=== PATIENT | female | born 1945 | race Hispanic/Latino ===

== ENCOUNTER 2016-09-08 16:19 | Emergency (ER) | payer MEDICARE ==
[2016-09-08 17:10] LABS: #Basophils 0.1 thou/uL (0.0-0.2); #Eosinphils 0.1 thou/uL (0.0-0.7); #Lymphocytes 1.3 thou/uL (1.20-3.40); #Monocytes 0.5 thou/uL (0.11-0.59); #Neutrophils 6.5 thou/uL (1.40-6.50); %Basophils 1.7 % (0.0-1.0); %Eosinophils 1.6 % (0.0-10.0); %Lymphocytes 15.1 % (21.0-51.0); %Monocytes 5.4 % (0.0-10.0); %Neutrophils 76.2 % (42.0-75.0); Hemoglobin 9.7 g/dL (12.0-16.0); Mean Corpuscular HGB CONC 34.5 g/dL (32.0-36.0); Mean Corpuscular Hemoglobin 29.4 pg (27.0-31.0); Mean Corpuscular Volume 85.2 fl (81.0-99.0); Mean Platelet Volume 6.2 fL (7.4-10.4); Platelet Count 364 thou/uL (130-400); RBC Distribution Width 16.8 % (11.5-14.5); Red Blood Cell (RBC) Count 3.29 mill/uL (4.20-5.40); White Blood Cell (WBC) Count 8.5 thou/uL (4.8-10.8)
[2016-09-08 17:29] LABS: ALT (SGPT) 21 U/L (0-55); AST (SGOT) 23 U/L (5-34); Albumin 4.4 g/dL (3.4-4.8); Alkaline Phosphatase 63 U/L (40-150); Anion Gap 19 mmol/L (10-20); BUN (Urea Nitrogen) 12 mg/dL (9.8-20.1); Bilirubin, Total 0.3 mg/dL (0.2-1.2); Calc. Creatinine Clearance 0 mL/min (70-130); Calcium 9.6 mg/dL (7.8-10.44); Carbon Dioxide 20 mmol/L (23-31); Chloride 105 mmol/L (98-107); Estimated GFR-MDRD 81; Globulin 3.1 g/dL (2.4-3.5); Glucose 82 mg/dL (80-115); Potassium 3.6 mmol/L (3.5-5.1); Protein, Total 7.5 g/dL (5.8-8.1); Sodium 140 mmol/L (136-145)
--- NOTE | 2016-09-08 17:50 | ERRECORD ---
[facility] EMERGENCY RECORD HPI DIABETES (16:45 SHAN) CHIEF COMPLAINT: Patient presents for evaluation of hypoglycemia. HISTORIAN: History provided by patient, recent rx of diverticulitis; today glucoses dropped into 40's; came to er. Hadn't felt well this afternoon. TIME COURSE: Gradual onset of symptoms. ROS (16:46 SHAN) CONSTITUTIONAL: Negative constitutional review of systems, Historian denies chills, denies fever. EYES: Negative eye review of systems. ENT: Negative ears, nose, throat review of systems. CARDIOVASCULAR: Negative cardiovascular review of systems, Historian denies chest pain, denies palpitations. RESPIRATORY: Negative respiratory review of systems, Historian denies cough, denies shortness of breath. GI: Negative gastrointestinal review of systems, Historian denies abdominal pain, denies constipation, denies diarrhea. MUSCULOSKELETAL: Negative musculoskeletal review of systems. SKIN: Negative skin review of systems. NEUROLOGIC: Negative neurologic review of systems. ENDOCRINE: Negative endocrine review of systems. HEMO/LYMPHATIC: Normal hematologic/lymphatic system review. PSYCHIATRIC: Negative psychiatric review of systems. NOTES: All other ROS is negative except as listed in HPI. PAST MEDICAL HISTORY MEDICAL HISTORY: Notes: POOR HISTORIAN, Past medical history includes cardiac history, unspecified arrhythmia, Past medical history includes history of diabetes, Type II, Past medical history includes history of hyperlipidemia, high cholesterol. (16:29 SFRE) FEMALE SURGICAL HISTORY: COLON CA POOR HISTORIAN. (16:29 SFRE) PSYCHIATRIC HISTORY: No previous psychiatric history. (16:29 SFRE) SOCIAL HISTORY: Patient denies alcohol use, Patient denies drug use, Patient has no smoking history. (16:29 SFRE) NOTES: I have reviewed and agree with the PMH/PSxH/FamHx/SocHx obtained by the nurse. (16:46 SHAN) KNOWN ALLERGIES Ceclor Penicillins Sulfa (Sulfonamide Antibiotics) Zithromax CURRENT MEDICATIONS &a-1R&a+25V*p+0X*c8096F*c202B*c15G*c2P*p-0X&a-25V&a+1R Name: Kaila Frazier : 1945 F71 MedRec: [id number] AcctNum: [id number] Prepared: Dayana Sep 08, 2016 18:10 by Interface Page 1 of 4 pMD [facility] EMERGENCY RECORD fenofibrate: TABLET : Strength - 160 mg : ORAL Patient Dose: once a day (at bedtime). (16:29 JPER) glipiZIDE: TABLET : Strength - 10 mg : ORAL Patient Dose: mg Oral 2 times a day. (16:31 JPER) Iron (ferrous sulfate): TABLET : Strength - 325 mg (65 mg iron) : ORAL Patient Dose: mg Oral once a day (in the morning). (16:31 JPER) metFORMIN: TABLET : Strength - 1,000 mg : ORAL Patient Dose: 2 times a day. (16:31 JPER) omeprazole: CAPSULE,DELAYED RELEASE (ENTERIC COATED) : Strength - 20 mg : ORAL Patient Dose: once a day (in the morning). (16:31 JPER) clarithromycin: TABLET : Strength - 500 mg : ORAL Patient Dose: 2 times a day (before meals). (16:32 JPER) Flagyl: TABLET : Strength - 500 mg : ORAL Patient Dose: 2 times a day (before meals). (16:32 JPER) VITAL SIGNS VITAL SIGNS: BP: 156/61, Pulse: 89, Resp: 18, Temp: 98.0 (Tympanic), Pain: 0, O2 sat: 100 on Room Air, Time: 09/08/2016 16:22. (16:22 SFRE) BP: 126/52, Pulse: 91, Resp: 18, Temp: 98.1 (Tympanic), Pain: 0, O2 sat: 98 on Room Air, Time: 09/08/2016 17:45. (17:45 SFRE) BP: 133/63, Pulse: 83, Resp: 18, Pain: 0, O2 sat: 99 on Room Air, Time: 09/08/2016 17:15. (17:15 SFRE) BP: 136/58, Pulse: 88, Resp: 18, Temp: 98.0 (Tympanic), Pain: 0, O2 sat: 97 on Room Air, Time: 09/08/2016 16:45. (16:45 SFRE) PHYSICAL EXAM (16:46 SHAN) CONSTITUTIONAL: Vital signs reviewed, Patient appears non toxic, Patient alert and oriented to person, place and time, Pt is in no apparent distress. HEAD: Head exam included findings of head atraumatic, normocephalic. EYES: Eye exam included findings of eyelids normal to inspection, Pupils equally round and reactive to light, Extraocular muscles intact. ENT: ENT exam normal, Nose exam normal, no nasal deformity, no bleeding from nares, Pharynx exam normal, Mouth exam normal, mucous membranes moist. NECK: Neck exam included findings of normal range of motion, Trachea midline. RESPIRATORY CHEST: Respiratory and chest exam normal, Breath sounds clear, No wheezing, No rales, Chest exam included findings of &a-1R&a+25V*p+0X*w0522M*c202B*c15G*c2P*p-0X&a-25V&a+1R Name: Kaila Frazier : 1945 F71 MedRec: [id number] AcctNum: [id number] Prepared: Dayana Sep 08, 2016 18:10 by Interface Page 2 of 4 pMD [facility] EMERGENCY RECORD chest movement symmetrical, Chest expansion equal. CARDIOVASCULAR: Cardiovascular assessment normal, Cardiovascular exam included findings of heart rate regular rate and rhythm, Heart sounds normal. ABDOMEN FEMALE: Abdominal exam included findings of abdomen nontender, Bowel sounds normal, no mass, no pulsatile masses, no peritoneal signs. BACK: Back exam included findings of normal inspection, range of motion normal, no costovertebral angle tenderness. UPPER EXTREMITY: Upper extremity exam included findings of inspection normal, Range of motion normal. LOWER EXTREMITY: Lower extremity exam included findings of inspection normal, Range of motion normal. NEURO: Neuro exam findings include patient oriented to person, place and time, Speech normal, no focal motor deficits, no focal sensory deficits. SKIN: Skin exam included findings of skin warm, dry, and normal in color. LYMPHATIC: Lymphatic exam normal. PSYCHIATRIC: Psychiatric exam included findings of patient oriented to person place and time, Normal affect. DOCTOR NOTES TEXT: Adult female; diabetic; recent diverticulitis and gastritis on biaxin, flagyl, and Prilosec newly; glucose dropped low at home. (16:46 SHAN) Much improved; will allow discharge suspect that the flagyl and biaxin have caused some low grade stomach upset and calory drop. Will discharge. (17:38 SHAN) DATA REVIEWED: Lab data reviewed. (16:46 SHAN) Lab data reviewed. (17:38 SHAN) PROBLEM LIST No recorded problems DIAGNOSIS (17:40 CHU) FINAL: PRIMARY: Hypoglycemia (unspecified), ADDITIONAL: diabetes type 2. PRESCRIPTION (17:41 SHAN) Glucagon Emergency Kit (human): KIT : 1 mg : INJECTION : Quantity: 1 Unit: units Route: INJECTION Schedule: See Notes Dispense: 1 May substitute. Refills: No Refills . NOTES: if sugar drops low and can not eat; use one injection prior to calling ems. No Refills. DISPOSITION PATIENT: Disposition Type: Discharge, Disposition: *Discharge &a-1R&a+25V*p+0X*x9866T*c202B*c15G*c2P*p-0X&a-25V&a+1R Name: Kaila Frazier : 1945 F71 MedRec: [id number] AcctNum: [id number] Prepared: Dayana Sep 08, 2016 18:10 by Interface Page 3 of 4 pMD [facility] EMERGENCY RECORD Home. (17:40 CHU) Patient left the department. (18:02 JOMAR) Rodriguez: ALEX=PALLAVI Phillips, Chata HADLEY=PALLAVI Kimble, Kenna SAGE=MD Hawk, Praful &a-1R&a+25V*p+0X*j0729M*c202B*c15G*c2P*p-0X&a-25V&a+1R Name: Kaila Frazier : 1945 F71 MedRec: [id number] AcctNum: [id number] Prepared: Dayana Sep 08, 2016 18:10 by Interface Page 4 of 4 pMD MTDD
--- NOTE | 2016-09-08 17:53 | PICIS ---
[facility] EMERGENCY RECORD TRIAGE (16:24 SFRE) TRIAGE NOTES: LOW BLOOD SUGAR. (16:24 SFRE) PATIENT: NAME: Kaila Frazier, AGE: 71, GENDER: female, : Sat 1945, TIME OF GREET: WedSep 08, 2016 16:20, PREFERRED LANGUAGE: Pashto, ETHNICITY: Not or , ECODE BILLING MAP: [facility], SSN: [id number], Zip Code: [address], KG WEIGHT: 68.04, PHONE: , , , PERSON ID: [id number], PCP: ARIELLE. (16:24 SFRE) COMPLAINT: LOW BLOOD SUGAR. (16:24 SFRE) ADMISSION: URGENCY: 3 Urgent, ADMISSION SOURCE: Home, TRANSPORT: AMBULANCE - [facility], BED: ED -02. (16:24 SFRE) PAIN: No complaint of pain. (16:29 SFRE) IMMUNIZATIONS: Flu vaccine not up to date, Pneumococcal vaccine not up to date. (16:29 SFRE) SIRS SCORING: Heart Rate 55-109 (0), Temp range 96.8-101.1 (0), respiratory rate 12-24 (0), Mental Status altered: no (0). (16:29 SFRE) TRIAGE SCREENING: Patient denies suicidal ideation, Patient denies presence of domestic violence. (16:29 SFRE) PROVIDERS: TRIAGE NURSE: Kenna Kimble RN. (16:24 SFRE) VITAL SIGNS: BP 156/61, Pulse 89, Resp 18, Temp 98.0, (Tympanic), Pain 0, O2 Sat 100, on Room Air, Time 09/08/2016 16:22. (16:22 SFRE) KNOWN ALLERGIES Ceclor Penicillins Sulfa (Sulfonamide Antibiotics) Zithromax CURRENT MEDICATIONS fenofibrate: TABLET : Strength - 160 mg : ORAL Patient Dose: once a day (at bedtime). (16:29 JPER) glipiZIDE: TABLET : Strength - 10 mg : ORAL Patient Dose: mg Oral 2 times a day. (16:31 JPER) Iron (ferrous sulfate): TABLET : Strength - 325 mg (65 mg iron) : ORAL Patient Dose: mg Oral once a day (in the morning). (16:31 JPER) metFORMIN: TABLET : Strength - 1,000 mg : ORAL Patient Dose: 2 times a day. (16:31 JPER) omeprazole: CAPSULE,DELAYED RELEASE (ENTERIC COATED) : Strength - 20 mg : ORAL Patient Dose: once a day (in the morning). (16:31 JPER) clarithromycin: TABLET : Strength - 500 mg : ORAL Patient Dose: 2 times a day (before meals). (16:32 JPER) &a-1R&a+25V*p+0X*w2323I*c202B*c15G*c2P*p-0X&a-25V&a+1R Name: Kaila Frazier : 1945 F71 MedRec: [id number] AcctNum: [id number] Prepared: WedSep 08, 2016 18:15 by Interface Page 1 of 7 pMD [facility] EMERGENCY RECORD Flagyl: TABLET : Strength - 500 mg : ORAL Patient Dose: 2 times a day (before meals). (16:32 JPER) VITAL SIGNS VITAL SIGNS: BP: 156/61, Pulse: 89, Resp: 18, Temp: 98.0 (Tympanic), Pain: 0, O2 sat: 100 on Room Air, Time: 09/08/2016 16:22. (16:22 SFRE) BP: 126/52, Pulse: 91, Resp: 18, Temp: 98.1 (Tympanic), Pain: 0, O2 sat: 98 on Room Air, Time: 09/08/2016 17:45. (17:45 SFRE) BP: 133/63, Pulse: 83, Resp: 18, Pain: 0, O2 sat: 99 on Room Air, Time: 09/08/2016 17:15. (17:15 SFRE) BP: 136/58, Pulse: 88, Resp: 18, Temp: 98.0 (Tympanic), Pain: 0, O2 sat: 97 on Room Air, Time: 09/08/2016 16:45. (16:45 SFRE) NURSING ASSESSMENT: FOCUSED (16:35 SFRE) CONSTITUTIONAL: Patient arrives, via stretcher, via [facility], Gait steady, History obtained from patient, Patient appears, anxious, Patient cooperative, Patient alert, Oriented to person, place and time, Skin warm, Skin dry, Skin normal in color, Mucous membranes pink, Mucous membranes moist, Patient is well-groomed, Patient complains of LOW BLOOD SUGAR, PATIENT REPORTS THAT SHE STARTED SHAKING AND SO SHE CHECKED HER BS AND IT WAS 43. SHE DRANK A SODA. PAIN: intermittent, Patient rates pain as 0 out of 10. EYES: Focused eye assessment finding include pupils equally round and reactive to light. NEURO: Focused neuro assessment findings include patient alert, cooperative, No facial droop noted, Speech coherent, no weakness, no numbness, No loss of consciousness. GCS: Eye opening: (4) - Spontaneous, Verbal: (5) - Oriented/conversive, Motor: (6) - Obeys commands/Spontaneous, GCS Total: 15. RESPIRATORY: Focused respiratory assessment findings include breath sounds clear. ABDOMEN: Focused abdominal assessment findings include abdomen soft, non tender, no constipation, no diarrhea, no complaint of nausea, no vomiting, Bowel sounds present. GENITOURINARY FEMALE: Focused genitourinary assessment not applicable. MUSCULOSKELETAL: Focused musculoskeletal assessment findings include normal range of motion. SAFETY: Side rails up, Cart/Stretcher in lowest position, Family at bedside, Call light within reach, Hospital ID band on. NURSING PROCEDURE: BEDSIDE TESTING GLUCOSE: Glucose testing indicated for diabetic patient, Capillary blood sample, Result (mg/dl) 68, Machine number ER. (16:35 SFRE) Glucose testing indicated for diabetic patient, Capillary blood sample, &a-1R&a+25V*p+0X*x2434R*c202B*c15G*c2P*p-0X&a-25V&a+1R Name: Kaila Frazier : 1945 F71 MedRec: [id number] AcctNum: [id number] Prepared: Dayana Sep 08, 2016 18:15 by Interface Page 2 of 7 pMD [facility] EMERGENCY RECORD Result (mg/dl) 121. (17:18 SFRE) NURSING PROCEDURE: PRN OCCUPATIONAL THERAPIST (16:24 SFRE) PRN OCCUPATIONAL THERAPIST: Cardiac monitoring indicated for LOW BLOOD SUGAR, Patient placed on carpet installation specialist, Heart rate: 89, showing normal sinus rhythm, without ectopy, with no ST segment changes, Patient placed on non-invasive blood pressure monitor, Patient placed on continuous pulse oximetry, Adult/pediatric oxisensor applied, Oxygen saturation 100%. NURSING PROCEDURE: DISCHARGE NOTE (17:55 SFRE) DISCHARGE: Patient discharged to home, ambulating without assistance, family driving, accompanied by //partner, Summary of Care printed/ provided, Patient requested and was provided an electronic copy of Discharge Instructions, Discharge instructions given to patient, Simple or moderate discharge teaching performed, by BRAYDENRN, F/U WITH PCP. RX DIRECTED. RETURN TO ED NEEDED FOR NEW/CONCERNING OR WORSENING SYMPTOMS., Prescriptions given and instructions on side effects given, Name of prescription(s) given: GLUCAGON EMERGENCY KIT, Above person(s) verbalized understanding of discharge instructions and follow-up care. NURSING PROCEDURE: IV IV SITE 1: IV established, to the left forearm, using a 20 gauge catheter, Notes: BY EMS MASTER TECHNICIAN. (16:24 SFRE) FOLLOW-UP SITE 1: After procedure, no drainage at IV site, After procedure, no swelling at IV site, After procedure, no redness at IV site, IV discontinued, due to patient being discharged, catheter intact. (17:15 SFRE) NURSING PROCEDURE: NURSE NOTES NURSES NOTES: Warm blanket given to patient, Meal tray given to patient. (16:42 SFRE) Notes: PATIENT STATES SHE NEVER CHECKS HER BLOOD SUGAR. (17:19 SFRE) ORDER DETAILS Order Name: CBC with Differential, Status: Active, Time: 16:44 09/08/2016, User: CHU, - Ordered for: MD Arechiga Stanley, - Entered by: MD Arechiga Stanley - Tue Sep 08, 2016 16:44, - Quantity: 1, Order Name: Comprehensive Metabolic Panel, Status: Active, Time: 16:44 09/08/2016, User: CHU, - Ordered for: MD Arechiga Stanley, - Entered by: MD Arechiga Stanley - Tue Sep 08, 2016 16:44, - Quantity: 1. HPI DIABETES (16:45 CHU) &a-1R&a+25V*p+0X*e7216D*c202B*c15G*c2P*p-0X&a-25V&a+1R Name: Kaila Frazier : 1945 F71 MedRec: [id number] AcctNum: [id number] Prepared: Dayana Sep 08, 2016 18:15 by Interface Page 3 of 7 pMD [facility] EMERGENCY RECORD CHIEF COMPLAINT: Patient presents for evaluation of hypoglycemia. HISTORIAN: History provided by patient, recent rx of diverticulitis; today glucoses dropped into 40's; came to er. Hadn't felt well this afternoon. TIME COURSE: Gradual onset of symptoms. ROS (16:46 SHAN) CONSTITUTIONAL: Negative constitutional review of systems, Historian denies chills, denies fever. EYES: Negative eye review of systems. ENT: Negative ears, nose, throat review of systems. CARDIOVASCULAR: Negative cardiovascular review of systems, Historian denies chest pain, denies palpitations. RESPIRATORY: Negative respiratory review of systems, Historian denies cough, denies shortness of breath. GI: Negative gastrointestinal review of systems, Historian denies abdominal pain, denies constipation, denies diarrhea. MUSCULOSKELETAL: Negative musculoskeletal review of systems. SKIN: Negative skin review of systems. NEUROLOGIC: Negative neurologic review of systems. ENDOCRINE: Negative endocrine review of systems. HEMO/LYMPHATIC: Normal hematologic/lymphatic system review. PSYCHIATRIC: Negative psychiatric review of systems. NOTES: All other ROS is negative except as listed in HPI. PAST MEDICAL HISTORY MEDICAL HISTORY: Notes: POOR HISTORIAN, Past medical history includes cardiac history, unspecified arrhythmia, Past medical history includes history of diabetes, Type II, Past medical history includes history of hyperlipidemia, high cholesterol. (16:29 SFRE) FEMALE SURGICAL HISTORY: COLON CA POOR HISTORIAN. (16:29 SFRE) PSYCHIATRIC HISTORY: No previous psychiatric history. (16:29 SFRE) SOCIAL HISTORY: Patient denies alcohol use, Patient denies drug use, Patient has no smoking history. (16:29 SFRE) NOTES: I have reviewed and agree with the PMH/PSxH/FamHx/SocHx obtained by the nurse. (16:46 SHAN) PHYSICAL EXAM (16:46 SHAN) CONSTITUTIONAL: Vital signs reviewed, Patient appears non toxic, Patient alert and oriented to person, place and time, Pt is in no apparent distress. HEAD: Head exam included findings of head atraumatic, normocephalic. EYES: Eye exam included findings of eyelids normal to inspection, Pupils equally round and reactive to light, Extraocular muscles &a-1R&a+25V*p+0X*w3953R*c202B*c15G*c2P*p-0X&a-25V&a+1R Name: Kaila Frazier : 1945 F71 MedRec: [id number] AcctNum: [id number] Prepared: WedSep 08, 2016 18:15 by Interface Page 4 of 7 pMD [facility] EMERGENCY RECORD intact. ENT: ENT exam normal, Nose exam normal, no nasal deformity, no bleeding from nares, Pharynx exam normal, Mouth exam normal, mucous membranes moist. NECK: Neck exam included findings of normal range of motion, Trachea midline. RESPIRATORY CHEST: Respiratory and chest exam normal, Breath sounds clear, No wheezing, No rales, Chest exam included findings of chest movement symmetrical, Chest expansion equal. CARDIOVASCULAR: Cardiovascular assessment normal, Cardiovascular exam included findings of heart rate regular rate and rhythm, Heart sounds normal. ABDOMEN FEMALE: Abdominal exam included findings of abdomen nontender, Bowel sounds normal, no mass, no pulsatile masses, no peritoneal signs. BACK: Back exam included findings of normal inspection, range of motion normal, no costovertebral angle tenderness. UPPER EXTREMITY: Upper extremity exam included findings of inspection normal, Range of motion normal. LOWER EXTREMITY: Lower extremity exam included findings of inspection normal, Range of motion normal. NEURO: Neuro exam findings include patient oriented to person, place and time, Speech normal, no focal motor deficits, no focal sensory deficits. SKIN: Skin exam included findings of skin warm, dry, and normal in color. LYMPHATIC: Lymphatic exam normal. PSYCHIATRIC: Psychiatric exam included findings of patient oriented to person place and time, Normal affect. EVENTS TRANSFER: Triage to Emergency Main ED -02. (WedSep 08, 2016 16:24 SFRE) Removed from Emergency Main ED -02. (18:02 SFRE) DOCTOR NOTES TEXT: Adult female; diabetic; recent diverticulitis and gastritis on biaxin, flagyl, and Prilosec newly; glucose dropped low at home. (16:46 SHAN) Much improved; will allow discharge suspect that the flagyl and biaxin have caused some low grade stomach upset and calory drop. Will discharge. (17:38 SHAN) DATA REVIEWED: Lab data reviewed. (16:46 SHAN) Lab data reviewed. (17:38 SHAN) PROBLEM LIST No recorded problems DIAGNOSIS (17:40 SHAN) FINAL: PRIMARY: Hypoglycemia (unspecified), ADDITIONAL: &a-1R&a+25V*p+0X*o6437J*c202B*c15G*c2P*p-0X&a-25V&a+1R Name: Kaila Frazier : 1945 F71 MedRec: [id number] AcctNum: [id number] Prepared: WedSep 08, 2016 18:15 by Interface Page 5 of 7 pMD [facility] EMERGENCY RECORD diabetes type 2. DISPOSITION PATIENT: Disposition Type: Discharge, Disposition: *Discharge Home. (17:40 SHAN) Patient left the department. (18:02 SFRE) INSTRUCTION (17:42 SHAN) DISCHARGE: DIABETES HYPOGLYCEMIA ORAL AGENT. SPECIAL: 1. stop the clarithyromycin and metronidazole 2. eat a bed time snack tonight 3. followup with provider in a few days and discuss the low glucose and the meds and options 4. return if problem worsens. PRESCRIPTION (17:41 SHAN) Glucagon Emergency Kit (human): KIT : 1 mg : INJECTION : Quantity: 1 Unit: units Route: INJECTION Schedule: See Notes Dispense: 1 May substitute. Refills: No Refills . NOTES: if sugar drops low and can not eat; use one injection prior to calling ems. No Refills. IMAGING (18:01 SFRE) *DISCHARGE INSTRUCTIONS RECEIPT: Image captured from scanner. *SUPPLY CHARGE SHEET: Image captured from scanner. ADMIN DIGITAL SIGNATURE: MD Hawk, Praful. (17:43 SHAN) PALLAVI Kimble, Kenna. (18:02 SFRE) RESULTS LABORATORY: [place] Collection DT: WedSep 08, 2016 16:40, *[place] 68 - L mg/dL, Range (70-110). (16:44 SHAN) CBC with Differential Collection DT: WedSep 08, 2016 17:05, White Blood Cell (WBC) Count 8.5 thou/uL, Range (4.8-10.8), *Red Blood Cell (RBC) Count 3.29 - L mill/uL, Range (4.20-5.40), *Hemoglobin 9.7 - L g/dL, Range (12.0-16.0), *Hematocrit 28.0 - L %, Range (36.0-47.0), Mean Corpuscular Volume 85.2 fl, Range (81.0-99.0), Mean Corpuscular Hemoglobin 29.4 pg, Range (27.0-31.0), Mean Corpuscular HGB CONC 34.5 g/dL, Range (32.0-36.0), *RBC Distribution Width 16.8 - H %, Range (11.5-14.5), Platelet Count 364 thou/uL, Range (130-400), *Mean Platelet Volume 6.2 - L fL, Range (7.4-10.4), *%Neutrophils 76.2 - H %, Range (42.0-75.0), *%Lymphocytes 15.1 - L %, Range (21.0-51.0), %Monocytes 5.4 %, Range (0.0-10.0), &a-1R&a+25V*p+0X*x4168Z*c202B*c15G*c2P*p-0X&a-25V&a+1R Name: Kaila Frazier : 1945 F71 MedRec: [id number] AcctNum: [id number] Prepared: WedSep 08, 2016 18:15 by Interface Page 6 of 7 pMD [facility] EMERGENCY RECORD %Eosinophils 1.6 %, Range (0.0-10.0), *%Basophils 1.7 - H %, Range (0.0-1.0), #Neutrophils 6.5 thou/uL, Range (1.40-6.50), #Lymphocytes 1.3 thou/uL, Range (1.20-3.40), #Monocytes 0.5 thou/uL, Range (0.11-0.59), #Eosinphils 0.1 thou/uL, Range (0.0-0.7), #Basophils 0.1 thou/uL, Range (0.0-0.2). (17:13 SHAN) Accuc[place]k Collection DT: WedSep 08, 2016 17:24, *Acc[place] 121 - H mg/dL, Range (70-110). (17:27 CHU) Comprehensive Metabolic Panel Collection DT: WedSep 08, 2016 17:05, Sodium 140 mmol/L, Range (136-145), Potassium 3.6 mmol/L, Range (3.5-5.1), Chloride 105 mmol/L, Range (98-107), *Carbon Dioxide 20 - L mmol/L, Range (23-31), Anion Gap 19 mmol/L, Range (10-20), BUN (Urea Nitrogen) 12 mg/dL, Range (9.8-20.1), Creatinine 0.71 mg/dL, Range (0.6-1.1), Estimated GFR-MDRD 81 , Reference Range for Estimated GFR: Greater than 90, mL/min/1.73 m2 NOTE: The MDRD equation has not been validated for use, with the elderly (over 70 years of age), women, patients with, serious comorbid condition or persons with extremes of body size, muscle, mass, or nutritional status. , Glucose 82 mg/dL, Range (80-115), Calcium 9.6 mg/dL, Range (7.8-10.44), Bilirubin, Total 0.3 mg/dL, Range (0.2-1.2), Protein, Total 7.5 g/dL, Range (5.8-8.1), NOTE: Plasma values are generally 0.3 to 0.5 g/dL higher than serum values, due to the presence of fibrinogen. , Albumin 4.4 g/dL, Range (3.4-4.8), Globulin 3.1 g/dL, Range (2.4-3.5), Alb/Glob Ratio 1.4 g/dL, Range (1.2-2.2), Alkaline Phosphatase 63 U/L, Range (40-150), AST (SGOT) 23 U/L, Range (5-34), ALT (SGPT) 21 U/L, Range (0-55). (17:34 CHU) Rodriguez: ALEX=PALLAVI Phillips, Chata HADLEY=PALLAVI Kimble, Kenna SAGE=MD Hawk, Praful &a-1R&a+25V*p+0X*h2982F*c202B*c15G*c2P*p-0X&a-25V&a+1R Name: Kaila Frazier : 1945 F71 MedRec: [id number] AcctNum: [id number] Prepared: Dayana Sep 08, 2016 18:15 by Interface Page 7 of 7 pMD MTDD
== END 2016-09-08 17:55 | disposition home or self-care (01) ==
LOC: MADERS 16:19
DX: E11.649 Type 2 diabetes mellitus with hypoglycemia without coma (principal); E78.5 Hyperlipidemia, unspecified; E78.00 Pure hypercholesterolemia, unspecified
CPT/HCPCS: 36416; 80053; 85025; 99285; 36415-59

== ENCOUNTER 2016-09-24 03:19 | Emergency (ER) | payer MEDICARE ==
[2016-09-24 04:26] LABS: #Basophils 0.1 thou/uL (0.0-0.2); #Lymphocytes 1.2 thou/uL (1.20-3.40); #Monocytes 0.3 thou/uL (0.11-0.59); #Neutrophils 8.9 thou/uL (1.40-6.50); %Basophils 0.6 % (0.0-1.0); %Eosinophils 0.3 % (0.0-10.0); %Lymphocytes 11.3 % (21.0-51.0); %Neutrophils 84.8 % (42.0-75.0); Hemoglobin 9.7 g/dL (12.0-16.0); Mean Corpuscular HGB CONC 34.5 g/dL (32.0-36.0); Mean Corpuscular Hemoglobin 29.2 pg (27.0-31.0); Mean Corpuscular Volume 84.7 fl (81.0-99.0); Mean Platelet Volume 6.8 fL (7.4-10.4); Platelet Count 306 thou/uL (130-400); RBC Distribution Width 17.6 % (11.5-14.5); Red Blood Cell (RBC) Count 3.31 mill/uL (4.20-5.40); White Blood Cell (WBC) Count 10.5 thou/uL (4.8-10.8)
[2016-09-24 04:37] LABS: ALT (SGPT) 18 U/L (0-55); AST (SGOT) 15 U/L (5-34); Albumin 4.3 g/dL (3.4-4.8); Alkaline Phosphatase 59 U/L (40-150); Anion Gap 19 mmol/L (10-20); BUN (Urea Nitrogen) 17 mg/dL (9.8-20.1); Bilirubin, Total 0.5 mg/dL (0.2-1.2); Calc. Creatinine Clearance 0 mL/min (70-130); Carbon Dioxide 20 mmol/L (23-31); Chloride 100 mmol/L (98-107); Estimated GFR-MDRD 72; Globulin 3.3 g/dL (2.4-3.5); Glucose 398 mg/dL (80-115); Potassium 4.6 mmol/L (3.5-5.1); Protein, Total 7.6 g/dL (5.8-8.1); Sodium 134 mmol/L (136-145)
--- NOTE | 2016-09-24 05:04 | ERRECORD ---
[facility] EMERGENCY RECORD HPI DIABETES (04:07 BPIC) CHIEF COMPLAINT: Patient presents for evaluation of hyperglycemia. HISTORIAN: History provided by patient, pt was having flu symptoms today and went to see her pcp where she received some kind of shot. In the night today, she was sweating and checked her blood sugar which was 411. Upon arrival here, her blood glucose is 354. Asymptomatic currently. pt takes glipizide and metformin. No insulin and pt has never had glucose this high in the past. ROS (04:08 BPIC) CONSTITUTIONAL: Negative constitutional review of systems, Historian denies chills, Historian denies fever. Sweating at home in bed. EYES: Negative eye review of systems. ENT: Negative ears, nose, throat review of systems. CARDIOVASCULAR: Negative cardiovascular review of systems, Historian denies chest pain, denies palpitations. RESPIRATORY: Negative respiratory review of systems, Historian denies cough, denies shortness of breath. GI: Negative gastrointestinal review of systems, Historian denies abdominal pain, denies constipation, denies diarrhea. MUSCULOSKELETAL: Negative musculoskeletal review of systems. SKIN: Negative skin review of systems. NEUROLOGIC: Negative neurologic review of systems. ENDOCRINE: Negative endocrine review of systems. HEMO/LYMPHATIC: Normal hematologic/lymphatic system review. PSYCHIATRIC: Negative psychiatric review of systems. NOTES: All other ROS is negative except as listed in HPI. PAST MEDICAL HISTORY MEDICAL HISTORY: Notes: POOR HISTORIAN, Past medical history includes cardiac history, unspecified arrhythmia, Past medical history includes history of diabetes, Type II, Past medical history includes history of hyperlipidemia, high cholesterol. colon cancer 1997.verified 2-17. (03:44 MCRS) FEMALE SURGICAL HISTORY: COLON CA POOR HISTORIAN. colon cancer 1997. (03:44 MCRS) PSYCHIATRIC HISTORY: No previous psychiatric history. verified 2-2-17. (03:44 MCRS) SOCIAL HISTORY: Patient denies alcohol use, Patient denies drug use, Patient has no smoking history, Patient denies alcohol use, Patient denies drug use, Patient has no smoking history. (03:44 MCRS) NOTES: I have reviewed and agree with the PMH/PSxH/FamHx/SocHx obtained by the nurse. (04:08 BPIC) KNOWN ALLERGIES Ceclor &a-1R&a+25V*p+0X*d7424K*c202B*c15G*c2P*p-0X&a-25V&a+1R Name: Kaila Frazier : 1945 F71 MedRec: [id number] AcctNum: [id number] Prepared: [facility] Sep 24, 2016 05:01 by Interface Page 1 of 3 pMD [facility] EMERGENCY RECORD Penicillins Sulfa (Sulfonamide Antibiotics) Zithromax CURRENT MEDICATIONS glipiZIDE: TABLET, EXTENDED RELEASE 24 HR : Strength - 10 mg : ORAL Patient Dose: 10 mg Oral once a day (in the morning). (03:36 MCRS) quinapril: TABLET : Strength - 10 mg : ORAL Patient Dose: 10 mg Oral once a day (in the morning). (03:37 MCRS) metFORMIN: TABLET : Strength - 1,000 mg : ORAL Patient Dose: 1000 mg Oral 2 times a day. (03:37 MCRS) VITAL SIGNS (03:26 MCRS) VITAL SIGNS: BP: 147/72 (Sitting), Pulse: 99, Resp: 20, Temp: 97.5 (Tympanic), Pain: 0, O2 sat: 99 on Room Air, Time: 09/24/2016 03:26. PHYSICAL EXAM (04:08 BPIC) CONSTITUTIONAL: Vital signs reviewed, Patient appears non toxic, Patient alert and oriented to person, place and time, Pt is in no apparent distress. HEAD: Head exam included findings of head atraumatic, normocephalic. EYES: Eye exam included findings of eyelids normal to inspection, Pupils equally round and reactive to light, Extraocular muscles intact. ENT: ENT exam normal, Nose exam normal, no nasal deformity, no bleeding from nares, Pharynx exam normal, Mouth exam normal, mucous membranes moist. NECK: Neck exam included findings of normal range of motion, Trachea midline. RESPIRATORY CHEST: Respiratory and chest exam normal, Breath sounds clear, No wheezing, No rales, Chest exam included findings of chest movement symmetrical, Chest expansion equal. CARDIOVASCULAR: Cardiovascular assessment normal, Cardiovascular exam included findings of heart rate regular rate and rhythm, Heart sounds normal, equal radial and DP pulses. ABDOMEN FEMALE: Abdominal exam included findings of abdomen nontender, Bowel sounds normal, no mass, no pulsatile masses, no peritoneal signs. BACK: Back exam included findings of normal inspection, range of motion normal, no costovertebral angle tenderness. UPPER EXTREMITY: Upper extremity exam included findings of inspection normal, Range of motion normal. LOWER EXTREMITY: Lower extremity exam included findings of &a-1R&a+25V*p+0X*x1425C*c202B*c15G*c2P*p-0X&a-25V&a+1R Name: Kaila Frazier : 1945 F71 MedRec: [id number] AcctNum: [id number] Prepared: [facility] Sep 24, 2016 05:01 by Interface Page 2 of 3 pMD [facility] EMERGENCY RECORD inspection normal, Range of motion normal. NEURO: Neuro exam findings include patient oriented to person, place and time, Speech normal, no focal motor deficits, no focal sensory deficits. SKIN: Skin exam included findings of skin warm, dry, and normal in color. PSYCHIATRIC: Psychiatric exam included findings of patient oriented to person place and time, Normal affect. DOCTOR NOTES (04:42 BPIC) TEXT: Hyperglycemia, normal anion gap. likely elevated because of a steroid shot in clinic. pt to take metformin and glipizide in about an hour at home. I do not want to drop glucose here, since she was recently seen for hypoglycemia. I discussed the diagnosis with the patient prior to discharge. All questions were answered. There is no indication for admission currently and the patient will follow up with a primary care physician. Any pertinent labs or imaging were reviewed and dicussed with the patient. If any new or emergent symptoms occur, the patient will return to the emergency department. PROBLEM LIST No recorded problems DIAGNOSIS (04:43 BPIC) FINAL: PRIMARY: TYPE 2 DM W/HYPERGLYCEMIA. PRESCRIPTION No recorded prescriptions DISPOSITION PATIENT: Disposition Type: Discharge, Disposition: *Discharge Home, Condition: Good. (04:43 BPIC) Disposition Transport: Car. (04:59 MCRS) Patient left the department. (04:59 MCRS) Rodriguez: BPIC=MD Gee, Shai MCRS=PALLAVI Johns, Ethan &a-1R&a+25V*p+0X*x2602D*c202B*c15G*c2P*p-0X&a-25V&a+1R Name: Kaila Frazier : 1945 F71 MedRec: [id number] AcctNum: [id number] Prepared: Venessa Sep 24, 2016 05:01 by Interface Page 3 of 3 pMD MTDD
--- NOTE | 2016-09-24 05:09 | PICIS ---
[facility] EMERGENCY RECORD TRIAGE (03:32 MCRS) TRIAGE NOTES: DIABETIC WITH BLOOD SUGER 411 AT 0250 . WENT TO PCP THIS DAY FOR COLD AND RECEIVED A SHOT... DOES NOT KNOW WHAT THE MED WAS. (03:32 MCRS) PATIENT: NAME: Kaila Frazier, AGE: 71, GENDER: female, : Sat 1945, TIME OF GREET: Venessa Sep 24, 2016 03:20, PREFERRED LANGUAGE: Syriac, ETHNICITY: or , ECODE BILLING MAP: [facility], SSN: [id number], Zip Code: [address], KG WEIGHT: [phone], PHONE: , , , PERSON ID: [id number], PCP: CHARILE GUZMÁN. (03:32 MCRS) COMPLAINT: HIGH BLOOD SUGAR. (03:32 MCRS) ADMISSION: URGENCY: 4 Non Urgent, ADMISSION SOURCE: Home, TRANSPORT: CAR, BED: ED -03. (03:32 MCRS) ASSESSMENT: Assessment: was diaphoretic at home - now asymptomatic.., Symptoms began 0250. (03:44 MCRS) SIRS SCORING: Heart Rate 55-109 (0), Temp range 96.8-101.1 (0), respiratory rate 12-24 (0), Mental Status altered: no (0), Infection or Suspected Infection: No. (03:44 MCRS) PROVIDERS: TRIAGE NURSE: Ethan Johns RN. (03:32 MCRS) VITAL SIGNS: BP 147/72, (Sitting), Pulse 99, Resp 20, Temp 97.5, (Tympanic), Pain 0, O2 Sat 99, on Room Air, Time 09/24/2016 03:26. (03:26 MCRS) PREVIOUS VISIT ALLERGIES: Ceclor, Penicillins, Sulfa (Sulfonamide Antibiotics), Zithromax. (03:32 MCRS) Ceclor, Penicillins, Sulfa (Sulfonamide Antibiotics), Zithromax. (03:44 MCRS) KNOWN ALLERGIES Ceclor Penicillins Sulfa (Sulfonamide Antibiotics) Zithromax CURRENT MEDICATIONS glipiZIDE: TABLET, EXTENDED RELEASE 24 HR : Strength - 10 mg : ORAL Patient Dose: 10 mg Oral once a day (in the morning). (03:36 MCRS) quinapril: TABLET : Strength - 10 mg : ORAL Patient Dose: 10 mg Oral once a day (in the morning). (03:37 MCRS) metFORMIN: TABLET : Strength - 1,000 mg : ORAL Patient Dose: 1000 mg Oral 2 times a day. (03:37 MCRS) VITAL SIGNS (03:26 MCRS) VITAL SIGNS: BP: 147/72 (Sitting), Pulse: 99, Resp: 20, Temp: 97.5 (Tympanic), Pain: 0, O2 sat: 99 on Room Air, Time: 09/24/2016 &a-1R&a+25V*p+0X*r4293D*c202B*c15G*c2P*p-0X&a-25V&a+1R Name: Kaila Frazier : 1945 F71 MedRec: [id number] AcctNum: [id number] Prepared: [facility] Sep 24, 2016 05:07 by Interface Page [address] [facility] EMERGENCY RECORD 03:26. NURSING ASSESSMENT: FOCUSED (03:45 MCRS) CONSTITUTIONAL: Patient arrives ambulatory, Gait steady, History obtained from patient, Patient appears comfortable, Patient cooperative, Patient alert, Oriented to person, place and time, Skin warm, Skin dry, Skin normal in color, Mucous membranes pink, Mucous membranes moist, Patient is well-groomed, Patient complains of elevated blood sugar - asymptomatic now. EYES: Focused eye assessment finding include pupils equally round and reactive to light, Left pupil 3 mm in size, Right pupil 3 mm in size. NEURO: Focused neuro assessment findings include patient alert, cooperative, No facial droop noted, Speech coherent. GCS: Eye opening: (4) - Spontaneous, Verbal: (5) - Oriented/conversive, Motor: (6) - Obeys commands/Spontaneous, GCS Total: 15. RESPIRATORY: Focused respiratory assessment findings include breath sounds clear. ABDOMEN: Focused abdominal assessment findings include abdomen soft. MUSCULOSKELETAL: Focused musculoskeletal assessment findings include normal range of motion. SAFETY: Cart/Stretcher in lowest position, Family at bedside, Call light within reach, Hospital ID band on. NURSING PROCEDURE: BEDSIDE TESTING (03:40 MCRS) GLUCOSE: Glucose testing indicated for diabetic patient, Glucose testing indicated for hyperglycemia, Capillary blood sample, Result (mg/dl) 380. NURSING PROCEDURE: DISCHARGE NOTE (04:55 FERNANDO) DISCHARGE: Patient discharged to home, ambulating without assistance, family driving, accompanied by //partner, Summary of Care printed/ provided, Patient requested and was provided an electronic copy of Discharge Instructions, Transition record given to patient, Discharge instructions given to patient, Discharge instructions given to , Simple or moderate discharge teaching performed, DISCHARGE INSTRUCTIONS, Medication reconciliation form given, and reviewed with SEE LIST, Above person(s) verbalized understanding of discharge instructions and follow-up care, Patient treated and evaluated by physician. BELONGINGS: Valuables remain with patient. ORDER DETAILS Order Name: Beta-Hydroxybutyrate (Ketone), Status: Canceled, Time: 04:09 09/24/2016, User: KAYLA, - Ordered for: MD Flynn Bryan, - Entered by: MD Flynn Bryan - [facility] Sep 24, 2016 03:58, &a-1R&a+25V*p+0X*z7528R*c202B*c15G*c2P*p-0X&a-25V&a+1R Name: Kaila Frazier : 1945 F71 MedRec: [id number] AcctNum: [id number] Prepared: WedSep 24, 2016 05:07 by Interface Page [address] [facility] EMERGENCY RECORD - Quantity: 1, Order Name: BLOOD GLUCOSE MONITOR, Status: Done, Time: 03:59 09/24/2016, User: FERNANDO, - Ordered for: MD Flynn Bryan, - Entered by: PALLAVI Johns Mikel - Venessa Sep 24, 2016 03:59, - Quantity: 1, Order Name: CBC with Differential, Status: Active, Time: 04:12 09/24/2016, User: KAYLA, - Ordered for: MD Flynn Bryan, - Entered by: PALLAVI Hernández Arlie - [facility] Sep 24, 2016 04:12, - Quantity: 1, Order Name: Comprehensive Metabolic Panel, Status: Active, Time: 04:12 09/24/2016, User: KAYLA, - Ordered for: MD Flynn Bryan, - Entered by: PALLAVI Hernández, Brandon - [facility] Sep 24, 2016 04:12, - Quantity: 1. HPI DIABETES (04:07 BPIC) CHIEF COMPLAINT: Patient presents for evaluation of hyperglycemia. HISTORIAN: History provided by patient, pt was having flu symptoms today and went to see her pcp where she received some kind of shot. In the night today, she was sweating and checked her blood sugar which was 411. Upon arrival here, her blood glucose is 354. Asymptomatic currently. pt takes glipizide and metformin. No insulin and pt has never had glucose this high in the past. ROS (04:08 BPIC) CONSTITUTIONAL: Negative constitutional review of systems, Historian denies chills, Historian denies fever. Sweating at home in bed. EYES: Negative eye review of systems. ENT: Negative ears, nose, throat review of systems. CARDIOVASCULAR: Negative cardiovascular review of systems, Historian denies chest pain, denies palpitations. RESPIRATORY: Negative respiratory review of systems, Historian denies cough, denies shortness of breath. GI: Negative gastrointestinal review of systems, Historian denies abdominal pain, denies constipation, denies diarrhea. MUSCULOSKELETAL: Negative musculoskeletal review of systems. SKIN: Negative skin review of systems. NEUROLOGIC: Negative neurologic review of systems. ENDOCRINE: Negative endocrine review of systems. HEMO/LYMPHATIC: Normal hematologic/lymphatic system review. PSYCHIATRIC: Negative psychiatric review of systems. NOTES: All other ROS is negative except as listed in HPI. PAST MEDICAL HISTORY MEDICAL HISTORY: Notes: POOR HISTORIAN, Past medical &a-1R&a+25V*p+0X*u4319T*c202B*c15G*c2P*p-0X&a-25V&a+1R Name: Kaila Frazier : 1945 F71 MedRec: [id number] AcctNum: [id number] Prepared: WedSep 24, 2016 05:07 by Interface Page [address] [facility] EMERGENCY RECORD history includes cardiac history, unspecified arrhythmia, Past medical history includes history of diabetes, Type II, Past medical history includes history of hyperlipidemia, high cholesterol. colon cancer 1997.verified 217. (03:44 MCRS) FEMALE SURGICAL HISTORY: COLON CA POOR HISTORIAN. colon cancer 1997. (03:44 MCRS) PSYCHIATRIC HISTORY: No previous psychiatric history. verified 09-24-16. (03:44 MCRS) SOCIAL HISTORY: Patient denies alcohol use, Patient denies drug use, Patient has no smoking history, Patient denies alcohol use, Patient denies drug use, Patient has no smoking history. (03:44 MCRS) NOTES: I have reviewed and agree with the PMH/PSxH/FamHx/SocHx obtained by the nurse. (04:08 BPIC) PHYSICAL EXAM (04:08 BPIC) CONSTITUTIONAL: Vital signs reviewed, Patient appears non toxic, Patient alert and oriented to person, place and time, Pt is in no apparent distress. HEAD: Head exam included findings of head atraumatic, normocephalic. EYES: Eye exam included findings of eyelids normal to inspection, Pupils equally round and reactive to light, Extraocular muscles intact. ENT: ENT exam normal, Nose exam normal, no nasal deformity, no bleeding from nares, Pharynx exam normal, Mouth exam normal, mucous membranes moist. NECK: Neck exam included findings of normal range of motion, Trachea midline. RESPIRATORY CHEST: Respiratory and chest exam normal, Breath sounds clear, No wheezing, No rales, Chest exam included findings of chest movement symmetrical, Chest expansion equal. CARDIOVASCULAR: Cardiovascular assessment normal, Cardiovascular exam included findings of heart rate regular rate and rhythm, Heart sounds normal, equal radial and DP pulses. ABDOMEN FEMALE: Abdominal exam included findings of abdomen nontender, Bowel sounds normal, no mass, no pulsatile masses, no peritoneal signs. BACK: Back exam included findings of normal inspection, range of motion normal, no costovertebral angle tenderness. UPPER EXTREMITY: Upper extremity exam included findings of inspection normal, Range of motion normal. LOWER EXTREMITY: Lower extremity exam included findings of inspection normal, Range of motion normal. NEURO: Neuro exam findings include patient oriented to person, place and time, Speech normal, no focal motor deficits, no focal sensory deficits. SKIN: Skin exam included findings of skin warm, dry, and normal in color. PSYCHIATRIC: Psychiatric exam included findings of patient &a-1R&a+25V*p+0X*p7620F*c202B*c15G*c2P*p-0X&a-25V&a+1R Name: Freddie Kaila Pickering : 1945 F71 MedRec: [id number] AcctNum: [id number] Prepared: WedSep 24, 2016 05:07 by Interface Page [address] [facility] EMERGENCY RECORD oriented to person place and time, Normal affect. EVENTS TRANSFER: Triage to Emergency Main ED -03. (WedSep 24, 2016 03:32 MCRS) Removed from Emergency Main ED -03. (04:59 MCRS) DOCTOR NOTES (04:42 BPIC) TEXT: Hyperglycemia, normal anion gap. likely elevated because of a steroid shot in clinic. pt to take metformin and glipizide in about an hour at home. I do not want to drop glucose here, since she was recently seen for hypoglycemia. I discussed the diagnosis with the patient prior to discharge. All questions were answered. There is no indication for admission currently and the patient will follow up with a primary care physician. Any pertinent labs or imaging were reviewed and dicussed with the patient. If any new or emergent symptoms occur, the patient will return to the emergency department. PROBLEM LIST No recorded problems DIAGNOSIS (04:43 BPIC) FINAL: PRIMARY: TYPE 2 DM W/HYPERGLYCEMIA. DISPOSITION PATIENT: Disposition Type: Discharge, Disposition: *Discharge Home, Condition: Good. (04:43 BPIC) Disposition Transport: Car. (04:59 MCRS) Patient left the department. (04:59 MCRS) INSTRUCTION (04:43 BPIC) DISCHARGE: DIABETIC HYPERGLYCEMIA. SPECIAL: Thank you for choosing [facility] for your care today! Please follow up with your doctor in the next 2-3 days. Return to the emergency department with any emergent or worsening concerns. God Bless you!. PRESCRIPTION No recorded prescriptions IMAGING (04:54 MCRS) *SUPPLY CHARGE SHEET: Image captured from scanner. *DISCHARGE INSTRUCTIONS RECEIPT: Image captured from scanner. RESULTS LABORATORY: [place] Collection DT: WedSep 24, 2016 03:45, *Accuc[place]k 380 - H mg/dL, Range (70-110). (03:56 BPIC) CBC with Differential Collection DT: WedSep 24, 2016 04:19, White Blood Cell (WBC) Count 10.5 thou/uL, Range (4.8-10.8), &a-1R&a+25V*p+0X*k5962P*c202B*c15G*c2P*p-0X&a-25V&a+1R Name: Kaila Frazier : 1945 F71 MedRec: [id number] AcctNum: [id number] Prepared: Venessa Sep 24, 2016 05:07 by Interface Page [address] [facility] EMERGENCY RECORD *Red Blood Cell (RBC) Count 3.31 - L mill/uL, Range (4.20-5.40), *Hemoglobin 9.7 - L g/dL, Range (12.0-16.0), *Hematocrit 28.0 - L %, Range (36.0-47.0), Mean Corpuscular Volume 84.7 fl, Range (81.0-99.0), Mean Corpuscular Hemoglobin 29.2 pg, Range (27.0-31.0), Mean Corpuscular HGB CONC 34.5 g/dL, Range (32.0-36.0), *RBC Distribution Width 17.6 - H %, Range (11.5-14.5), Platelet Count 306 thou/uL, Range (130-400), *Mean Platelet Volume 6.8 - L fL, Range (7.4-10.4), *%Neutrophils 84.8 - H %, Range (42.0-75.0), *%Lymphocytes 11.3 - L %, Range (21.0-51.0), %Monocytes 3.0 %, Range (0.0-10.0), %Eosinophils 0.3 %, Range (0.0-10.0), %Basophils 0.6 %, Range (0.0-1.0), *#Neutrophils 8.9 - H thou/uL, Range (1.40-6.50), #Lymphocytes 1.2 thou/uL, Range (1.20-3.40), #Monocytes 0.3 thou/uL, Range (0.11-0.59), #Eosinphils 0.0 thou/uL, Range (0.0-0.7), #Basophils 0.1 thou/uL, Range (0.0-0.2). (04:28 AGAN) CBC with Differential Collection DT: WedSep 24, 2016 04:19, White Blood Cell (WBC) Count 10.5 thou/uL, Range (4.8-10.8), *Red Blood Cell (RBC) Count 3.31 - L mill/uL, Range (4.20-5.40), *Hemoglobin 9.7 - L g/dL, Range (12.0-16.0), *Hematocrit 28.0 - L %, Range (36.0-47.0), Mean Corpuscular Volume 84.7 fl, Range (81.0-99.0), Mean Corpuscular Hemoglobin 29.2 pg, Range (27.0-31.0), Mean Corpuscular HGB CONC 34.5 g/dL, Range (32.0-36.0), *RBC Distribution Width 17.6 - H %, Range (11.5-14.5), Platelet Count 306 thou/uL, Range (130-400), *Mean Platelet Volume 6.8 - L fL, Range (7.4-10.4), *%Neutrophils 84.8 - H %, Range (42.0-75.0), *%Lymphocytes 11.3 - L %, Range (21.0-51.0), %Monocytes 3.0 %, Range (0.0-10.0), %Eosinophils 0.3 %, Range (0.0-10.0), %Basophils 0.6 %, Range (0.0-1.0), *#Neutrophils 8.9 - H thou/uL, Range (1.40-6.50), #Lymphocytes 1.2 thou/uL, Range (1.20-3.40), #Monocytes 0.3 thou/uL, Range (0.11-0.59), #Eosinphils 0.0 thou/uL, Range (0.0-0.7), #Basophils 0.1 thou/uL, Range (0.0-0.2). (04:28 COUNTS INCLUDE 234 BEDS AT THE [facility]) CBC with Differential Collection DT: WedSep 24, 2016 04:19, White Blood Cell (WBC) Count 10.5 thou/uL, Range (4.8-10.8), *Red Blood Cell (RBC) Count 3.31 - L mill/uL, Range (4.20-5.40), *Hemoglobin 9.7 - L g/dL, Range (12.0-16.0), *Hematocrit 28.0 - L %, Range (36.0-47.0), Mean Corpuscular Volume 84.7 fl, Range (81.0-99.0), Mean Corpuscular Hemoglobin 29.2 pg, Range (27.0-31.0), &a-1R&a+25V*p+0X*k5113M*c202B*c15G*c2P*p-0X&a-25V&a+1R Name: Kaila Frazier : 1945 F71 MedRec: [id number] AcctNum: [id number] Prepared: WedSep 24, 2016 05:07 by Interface Page [address] [facility] EMERGENCY RECORD Mean Corpuscular HGB CONC 34.5 g/dL, Range (32.0-36.0), *RBC Distribution Width 17.6 - H %, Range (11.5-14.5), Platelet Count 306 thou/uL, Range (130-400), *Mean Platelet Volume 6.8 - L fL, Range (7.4-10.4), *%Neutrophils 84.8 - H %, Range (42.0-75.0), *%Lymphocytes 11.3 - L %, Range (21.0-51.0), %Monocytes 3.0 %, Range (0.0-10.0), %Eosinophils 0.3 %, Range (0.0-10.0), %Basophils 0.6 %, Range (0.0-1.0), *#Neutrophils 8.9 - H thou/uL, Range (1.40-6.50), #Lymphocytes 1.2 thou/uL, Range (1.20-3.40), #Monocytes 0.3 thou/uL, Range (0.11-0.59), #Eosinphils 0.0 thou/uL, Range (0.0-0.7), #Basophils 0.1 thou/uL, Range (0.0-0.2). (04:28 AGAN) CBC with Differential Collection DT: WedSep 24, 2016 04:19, White Blood Cell (WBC) Count 10.5 thou/uL, Range (4.8-10.8), *Red Blood Cell (RBC) Count 3.31 - L mill/uL, Range (4.20-5.40), *Hemoglobin 9.7 - L g/dL, Range (12.0-16.0), *Hematocrit 28.0 - L %, Range (36.0-47.0), Mean Corpuscular Volume 84.7 fl, Range (81.0-99.0), Mean Corpuscular Hemoglobin 29.2 pg, Range (27.0-31.0), Mean Corpuscular HGB CONC 34.5 g/dL, Range (32.0-36.0), *RBC Distribution Width 17.6 - H %, Range (11.5-14.5), Platelet Count 306 thou/uL, Range (130-400), *Mean Platelet Volume 6.8 - L fL, Range (7.4-10.4), *%Neutrophils 84.8 - H %, Range (42.0-75.0), *%Lymphocytes 11.3 - L %, Range (21.0-51.0), %Monocytes 3.0 %, Range (0.0-10.0), %Eosinophils 0.3 %, Range (0.0-10.0), %Basophils 0.6 %, Range (0.0-1.0), *#Neutrophils 8.9 - H thou/uL, Range (1.40-6.50), #Lymphocytes 1.2 thou/uL, Range (1.20-3.40), #Monocytes 0.3 thou/uL, Range (0.11-0.59), #Eosinphils 0.0 thou/uL, Range (0.0-0.7), #Basophils 0.1 thou/uL, Range (0.0-0.2). (04:28 COUNTS INCLUDE 234 BEDS AT [facility]) CBC with Differential Collection DT: WedSep 24, 2016 04:19, White Blood Cell (WBC) Count 10.5 thou/uL, Range (4.8-10.8), *Red Blood Cell (RBC) Count 3.31 - L mill/uL, Range (4.20-5.40), *Hemoglobin 9.7 - L g/dL, Range (12.0-16.0), *Hematocrit 28.0 - L %, Range (36.0-47.0), Mean Corpuscular Volume 84.7 fl, Range (81.0-99.0), Mean Corpuscular Hemoglobin 29.2 pg, Range (27.0-31.0), Mean Corpuscular HGB CONC 34.5 g/dL, Range (32.0-36.0), *RBC Distribution Width 17.6 - H %, Range (11.5-14.5), Platelet Count 306 thou/uL, Range (130-400), *Mean Platelet Volume 6.8 - L fL, Range (7.4-10.4), *%Neutrophils 84.8 - H %, Range (42.0-75.0), *%Lymphocytes 11.3 - L %, Range (21.0-51.0), &a-1R&a+25V*p+0X*n8852W*c202B*c15G*c2P*p-0X&a-25V&a+1R Name: Kaila Frazier : 1945 F71 MedRec: [id number] AcctNum: [id number] Prepared: WedSep 24, 2016 05:07 by Interface Page [address] [facility] EMERGENCY RECORD %Monocytes 3.0 %, Range (0.0-10.0), %Eosinophils 0.3 %, Range (0.0-10.0), %Basophils 0.6 %, Range (0.0-1.0), *#Neutrophils 8.9 - H thou/uL, Range (1.40-6.50), #Lymphocytes 1.2 thou/uL, Range (1.20-3.40), #Monocytes 0.3 thou/uL, Range (0.11-0.59), #Eosinphils 0.0 thou/uL, Range (0.0-0.7), #Basophils 0.1 thou/uL, Range (0.0-0.2). (04:28 AGAN) Comprehensive Metabolic Panel Collection DT: Venessa Sep 24, 2016 04:19, *Sodium 134 - L mmol/L, Range (136-145), Potassium 4.6 mmol/L, Range (3.5-5.1), Chloride 100 mmol/L, Range (98-107), *Carbon Dioxide 20 - L mmol/L, Range (23-31), Anion Gap 19 mmol/L, Range (10-20), BUN (Urea Nitrogen) 17 mg/dL, Range (9.8-20.1), Creatinine 0.79 mg/dL, Range (0.6-1.1), Estimated GFR-MDRD 72 , Reference Range for Estimated GFR: Greater than 90, mL/min/1.73 m2 NOTE: The MDRD equation has not been validated for use, with the elderly (over 70 years of age), women, patients with, serious comorbid condition or persons with extremes of body size, muscle, mass, or nutritional status. , *Glucose 398 - H mg/dL, Range (80-115), Calcium 10.0 mg/dL, Range (7.8-10.44), Bilirubin, Total 0.5 mg/dL, Range (0.2-1.2), Protein, Total 7.6 g/dL, Range (5.8-8.1), NOTE: Plasma values are generally 0.3 to 0.5 g/dL higher than serum values, due to the presence of fibrinogen. , Albumin 4.3 g/dL, Range (3.4-4.8), Globulin 3.3 g/dL, Range (2.4-3.5), Alb/Glob Ratio 1.3 g/dL, Range (1.2-2.2), Alkaline Phosphatase 59 U/L, Range (40-150), AST (SGOT) 15 U/L, Range (5-34), ALT (SGPT) 18 U/L, Range (0-55). (04:41 BPIC) Rodriguez: KAYLA=PALLAVI Hernández, Brandon BPIC=MD Gee, Shai MCRS=PALLAVI Johns, Ethan &a-1R&a+25V*p+0X*n3310C*c202B*c15G*c2P*p-0X&a-25V&a+1R Name: Kaila Frazier : 1945 F71 MedRec: [id number] AcctNum: [id number] Prepared: [facility] Sep 24, 2016 05:07 by Interface Page 8 of 8 pMD MTDD
== END 2016-09-24 04:55 | disposition home or self-care (01) ==
LOC: MADERS 03:19
DX: E11.65 Type 2 diabetes mellitus with hyperglycemia (principal); Z79.84 Long term (current) use of oral hypoglycemic drugs; E78.5 Hyperlipidemia, unspecified; E78.00 Pure hypercholesterolemia, unspecified; Z85.038 Personal history of other malignant neoplasm of large intestine
CPT/HCPCS: 36416; 80053; 85025; 99284; 36415-59

== ENCOUNTER 2021-08-20 12:11 | Emergency (ER) | payer MEDICARE ==
[2021-08-20] MEDS ORDERED: Ibuprofen 600 MG TAB ONE (13:26)
[2021-08-21 12:00] LABS: SARS-CoV-2 PCR by NAA DETECTED (NotDetected)
== END 2021-08-20 13:34 | disposition home or self-care (01) ==
LOC: MADERS 12:11
DX: U07.1 COVID-19 (principal); E11.9 Type 2 diabetes mellitus without complications; E78.5 Hyperlipidemia, unspecified; E78.00 Pure hypercholesterolemia, unspecified; Z79.84 Long term (current) use of oral hypoglycemic drugs; Z79.899 Other long term (current) drug therapy
CPT/HCPCS: 99284; U0003; U0005

== ENCOUNTER 2021-08-24 13:18 | Emergency (ER) | payer MEDICARE ==
[2021-08-24 14:24] LABS: #Lymphocytes 0.9 thou/uL (1.20-3.40); #Monocytes 0.4 thou/uL (0.11-0.59); #Neutrophils 2.4 thou/uL (1.40-6.50); %Basophils 0.8 % (0.0-1.0); %Eosinophils 0.4 % (0.0-10.0); %Lymphocytes 23.6 % (21.0-51.0); %Monocytes 10.2 % (0.0-10.0); Hemoglobin 9.3 g/dL (12.0-16.0); Mean Corpuscular HGB CONC 33.8 g/dL (32.0-36.0); Mean Corpuscular Hemoglobin 28.6 pg (27.0-31.0); Mean Corpuscular Volume 84.5 fL (78.0-98.0); Mean Platelet Volume 6.4 fL (7.4-10.4); Platelet Count 279 thou/uL (130-400); RBC Distribution Width 16.9 % (11.5-14.5); Red Blood Cell (RBC) Count 3.26 mill/uL (4.20-5.40); White Blood Cell (WBC) Count 3.7 thou/uL (4.8-10.8)
[2021-08-24 14:35] LABS: Anion Gap 13 mmol/L (10-20); BUN (Urea Nitrogen) 22 mg/dL (9.8-20.1); Calc. Creatinine Clearance 0 mL/min (70-130); Calcium 9.9 mg/dL (7.8-10.44); Carbon Dioxide 23 mmol/L (23-31); Chloride 104 mmol/L (98-107); Glucose 119 mg/dL (83-110); Potassium 3.8 mmol/L (3.5-5.1); Sodium 136 mmol/L (136-145)
== END 2021-08-24 15:10 | disposition home or self-care (01) ==
LOC: MADERS 13:18
DX: U07.1 COVID-19 (principal); D64.9 Anemia, unspecified; E11.649 Type 2 diabetes mellitus with hypoglycemia without coma; E78.5 Hyperlipidemia, unspecified; E78.00 Pure hypercholesterolemia, unspecified; Z79.84 Long term (current) use of oral hypoglycemic drugs
CPT/HCPCS: 36416; 80048; 83605; 84484; 85025; 99284

== ENCOUNTER 2022-11-15 09:34 | Emergency (ER) | payer MEDICARE ==
[2022-11-15] MEDS ORDERED: Acetaminophen 500 MG TAB ONE (10:04)
== END 2022-11-15 11:23 | disposition home or self-care (01) ==
LOC: MADERS 09:34
DX: S32.049A Unspecified fracture of fourth lumbar vertebra, initial encounter for closed fracture (principal); I10 Essential (primary) hypertension; E11.9 Type 2 diabetes mellitus without complications; W19.XXXA Unspecified fall, initial encounter
CPT/HCPCS: 70450; 72125; 72131; 72192

== ENCOUNTER 2022-11-15 11:58 | Emergency (ER) | payer MEDICARE ==
[~2022-11-15 11:58] MED LIST: Iopamidol 370 76% 100 ML VIAL ONE
[2022-11-15] MEDS ORDERED: Clindamycin/D5W 900 mg/50 ml Premix Bag ONE (12:48)
[2022-11-15 12:55] LABS: PTT 28.9 sec (22.9-36.1)
[2022-11-15 13:03] LABS: ALT (SGPT) 12 U/L (8-55); AST (SGOT) 20 U/L (5-34); Albumin 4.4 g/dL (3.4-4.8); Alkaline Phosphatase 75 U/L (40-110); Anion Gap 12 mmol/L (10-20); BUN (Urea Nitrogen) 18 mg/dL (9.8-20.1); Bilirubin, Total 0.4 mg/dL (0.2-1.2); Calc. Creatinine Clearance 0 mL/min (70-130); Calcium 10.1 mg/dL (7.8-10.44); Carbon Dioxide 25 mmol/L (23-31); Chloride 104 mmol/L (98-107); Estimated GFR 76; Globulin 3.7 g/dL (2.4-3.5); Glucose 190 mg/dL (83-110); Potassium 4.3 mmol/L (3.5-5.1); Protein, Total 8.1 g/dL (5.8-8.1); Sodium 137 mmol/L (136-145)
[2022-11-15 13:12] LABS: Hemoglobin 9.6 g/dL (12.0-16.0); Mean Corpuscular HGB CONC 37.2 g/dL (32.0-36.0); Mean Corpuscular Hemoglobin 29.3 pg (27.0-31.0); Mean Corpuscular Volume 78.8 fl (78.0-98.0); Mean Platelet Volume 7.8 fL (7.4-10.4); Platelet Count 339 10x3/uL (130-400); RBC Distribution Width 12.9 % (11.5-14.5); Red Blood Cell (RBC) Count 3.27 mill/uL (4.20-5.40); White Blood Cell (WBC) Count 12.9 10x3/uL (4.8-10.8)
[2022-11-15 13:13] LABS: Band 6 % (5-11); Neutrophil 74 % (42-75); Reactive Lymphocytes 12 % (0-10)
[2022-11-15 13:14] LABS: Lymphocytes 5 % (21-51); MDiff Complete? YES; Monocytes 3 % (0-10); Platelet Morphology Comment Appears Adequate
[2022-11-15 13:15] LABS: Hypochromia SLIGHT = 6-15 cells (100X) (0-5/hpf); Polychromasia SLIGHT = 2-3 cells (100X) (0-2/hpf)
== END 2022-11-15 15:05 | disposition home or self-care (01) ==
LOC: MADERS 11:58
DX: S32.049A Unspecified fracture of fourth lumbar vertebra, initial encounter for closed fracture (principal); D64.9 Anemia, unspecified; N93.9 Abnormal uterine and vaginal bleeding, unspecified; I10 Essential (primary) hypertension; E11.9 Type 2 diabetes mellitus without complications; E78.00 Pure hypercholesterolemia, unspecified; Z79.82 Long term (current) use of aspirin; Z79.84 Long term (current) use of oral hypoglycemic drugs; Z79.899 Other long term (current) drug therapy; X58.XXXA Exposure to other specified factors, initial encounter; D72.829 Elevated white blood cell count, unspecified
CPT/HCPCS: 70450; 72125; 72131; 72192; 74177; 80053; 85025; 85610; 85730; 86850; 86900; 86901; 96365; J3490; Q9967